=== PATIENT | female | born 1985 | race Caucasian/White ===

== ENCOUNTER 2023-03-06 10:14 | Emergency (ER) | payer OTHER ==
[2023-03-06] MEDS ORDERED: SODIUM CHLORIDE 1,000 ML IV ONE (10:24)
[2023-03-06] MEDS ORDERED: METOCLOPRAMIDE HCL INJECTION 10 MG/2 ML VIAL IVPUSH ONE (10:24)
[2023-03-06] MEDS ORDERED: ACETAMINOPHEN 1000 MG/100 ML BAG IVPB ONE (10:25)
[2023-03-06] MEDS ORDERED: ACETAMINOPHEN INJECTION 100 ML IVPB ONE (10:40)
[2023-03-06] MEDS ORDERED: METOCLOPRAMIDE HCL INJECTION 10 MG/2 ML VIAL ONE (10:40)
[2023-03-06 10:49] VITALS: BMI 27.3
[2023-03-06 11:32] LABS: HEMATOCRIT 40.5 % (32.4-45.2); HEMOGLOBIN 13.9 G/dL (10.7-15.3); MCH 31.1 pg (25.7-33.7); MCHC 34.2 g/dl (32.0-36.0); MEAN CELL VOLUME 90.9 fl (80-96); MEAN PLT VOLUME 8.9 fl (7.5-11.1); PLATELET COUNT 256.4 10^3/uL (134-434); RBC 4.45 10^6/uL (3.60-5.2); RDW 14.2 % (11.6-15.6); WHITE BLOOD COUNT 6.6 10^3/uL (4.0-10.8)
[2023-03-06 11:52] LABS: ALBUMIN 4.8 g/dl (3.4-5.0); BILIRUBIN,TOTAL 0.6 mg/dl (0.2-1); CALCIUM 9.7 mg/dl (8.5-10.1); POTASSIUM 4.1 mmol/L (3.5-5.1); TOT PROT 6.9 g/dl (6.4-8.2)
[2023-03-06 12:02] LABS: EPITHELIAL CELLS 0-5 /hpf
[2023-03-06 12:19] LABS: PLATELET ESTIMATE ADEQUATE
[2023-03-06] MEDS ORDERED: KETOROLAC TROMETHAMINE 30 MG/1 ML VIAL IVPUSH ONE (13:35)
[2023-03-06] MEDS ORDERED: KETOROLAC TROMETHAMINE 15 MG/ML VIAL ONE (13:45)
[2023-03-06 15:12] VITALS: BP 100/60; PULSE 62; RESP 16; TEMP 98.7
== END 2023-03-06 15:34 | disposition home or self-care (01) ==
LOC: EDBD → FER 10:14
DX: G43.909 Migraine, unspecified, not intractable, without status migrainosus (principal); N20.0 Calculus of kidney; M54.9 Dorsalgia, unspecified
CPT/HCPCS: 36415; 74176-TC; 80053; 81003; 81015; 84703; 85025; 87086; 99284-25